=== PATIENT | female | born 1975 | race Caucasian/White ===

== ENCOUNTER 2019-03-23 10:51 | Emergency (ER) | payer OTHER ==
[2019-03-23 11:35] VITALS: BP 156/85
[2019-03-23] MEDS ORDERED: Ketorolac INJ* 60 MG/2 ML VIAL IM ONE (11:44)
--- NOTE | 2019-03-23 11:48 | UC ---
Dental HPI - HPI Summary HPI Summary: This patient is a 44-year-old female who presents to the urgent care with a chief complaint of having dental pain. She reports that this morning she was seen at [facility] and she was given antibiotics and naproxen for the pain. However the pain is very severe at this time therefore she came to the urgent care. She reports that shes taken Suboxone therefore she is unable to take any narcotics. She doesnt have any swelling, thus doesnt have any trismus, she doesnt have any swelling of the tongue or lips. She has no other complaints. - History of Current Complaint Chief Complaint: UCDentalProblem Stated Complaint: DENTAL PAIN Time Seen by Provider: 03/23/19 11:40 Hx Obtained From: Patient Hx Last Menstrual Period: 2 weeks ago Severity: Severe Pain Intensity: 10 - Allergies/Home Medications Allergies/Adverse Reactions: Allergies Allergy/AdvReac Type Severity Reaction Status Date / Time No Known Allergies Allergy Verified 03/23/19 11:35 Home Medications: Home Medications Buprenorp/Nalox 8-2 MG SL TAB [Suboxone 8-2 mg SL TAB*] 1 tab.sl SL DAILY [History Confirmed 03/23/19] Bupropion XL* [Wellbutrin XL *] 150 mg PO DAILY 03/23/19 [History Confirmed ] PMH/Surg Hx/FS Hx/Imm Hx Previously Healthy: Yes Psychological History: Other - SUbstance abuse Other History Of: Negative For: Anticoagulant Therapy - Surgical History Surgical History: Yes Surgery Procedure, Year, and Place: LT ANKLE REPAIR,SCREWS REMOVED. BUNION REMOVED RT FOOT. LAP [facility]INI - Family History Known Family History: Positive: Cardiac Disease, Respiratory Disease - mother - Social History Alcohol Use: None Alcohol Amount: in recovery Substance Use Type: None Substance Use Comment - Amount & Last Used: hx of. on suboxone currently Smoking Status (MU): Current Every Day Smoker Type: Cigarettes Amount Used/How Often: 1/2 PPD-1 PPD X 20 YEARS Have You Smoked in the Last Year: Yes Household Exposure Type: Cigarettes - Immunization History Most Recent Influenza Vaccination: 07/2016 Most Recent Tetanus Shot: 06/2016 Most Recent Pneumonia Vaccination: never Review of Systems All Other Systems Reviewed And Are Negative: Yes Constitutional: Positive: Negative Skin: Positive: Negative Eyes: Positive: Negative ENT: Positive: Dental Pain Respiratory: Positive: Negative Cardiovascular: Positive: Negative Gastrointestinal: Positive: Negative Genitourinary: Positive: Negative Motor: Positive: Negative Neurovascular: Positive: Negative Musculoskeletal: Positive: Negative Neurological: Positive: Negative Psychological: Positive: Negative Is Patient Immunocompromised?: No Physical Exam - Summary Physical Exam Summary: Gen.: Patient is a well developed and nourished female with acute distress secondary to dental pain Head: Normacephalic and atraumatic Eyes: PERRLA, EOMI x2. Ears: Right ear canal and TM WNL and Left ear canal and TM WNL Nose and mouth: Multiple dental pieces missing specially in the right upper jaw. Neck: Supple, Positive bilateral submandibular and anterior cervical lymphadenopathy. No JVD Lungs: CTA B/L CVS: S1 & S2 present. No murmurs appreciated. ABDOMEN: Soft NT w/ positive BS. EXT: FROM x 4 NEURO: A+O X 3. Vital Signs: Initial Vital Signs Temp 99.8 F 03/23/19 11:30 Pulse 61 03/23/19 11:30 Resp 18 03/23/19 11:30 BP 156/85 03/23/19 11:30 Pulse Ox 99 03/23/19 11:30 Dental Complaint Course/Dx - Course Course Of Treatment: In the urgent care course the patient was given Toradol 60 mg IM. She was recommended to get her prescription for antibiotics and naproxen for the pain. The patient understands and agrees. She was recommended to return to the urgent care or to the emergency room if the symptoms worsen. She understands and agrees. Patient is hemodynamically stable alert and oriented 3. - Differential Dx/Diagnosis Provider Diagnosis: Pain, dental Discharge - Sign-Out/Discharge Documenting (check all that apply): Patient Departure All imaging exams completed and their final reports reviewed: No Studies - Discharge Plan Condition: Stable Disposition: HOME Patient Education Materials: Toothache (ED) Referrals: Guille Mendoza MD [Primary Care Provider] - Additional Instructions: Patient was recommended to continue taking her antibiotics and naproxen. Patient shell follow-up with her dentist. If the symptoms worsen she should go to the emergency room for further workup and management. - Billing Disposition and Condition Condition: STABLE Disposition: Home
== END 2019-03-23 12:27 | disposition home or self-care (01) ==
LOC: UCEAST 10:51
DX: K08.89 Other specified disorders of teeth and supporting structures (principal); F17.210 Nicotine dependence, cigarettes, uncomplicated
CPT/HCPCS: 96372; 99211; G0463; J1885

== ENCOUNTER 2019-04-26 09:24 | Emergency (ER) | payer OTHER ==
[2019-04-26 09:30] VITALS: BP 135/83
== END 2019-04-26 11:43 | disposition left against medical advice (07) ==
LOC: ED 09:24
DX: K08.89 Other specified disorders of teeth and supporting structures (principal); Z53.21 Procedure and treatment not carried out due to patient leaving prior to being seen by health care provider

== ENCOUNTER 2019-04-26 21:31 | Emergency (ER) | payer OTHER ==
[2019-04-26] MEDS ORDERED: Ketorolac INJ* 30 MG/ML 1 ML VIAL IV PUSH ONE ×2 (22:31→23:41)
[2019-04-26] MEDS ORDERED: Morphine 4 MG/ML VIAL (1 ml) 4 MG/ML VIAL IV ONE (22:31)
[2019-04-26] MEDS ORDERED: Clindamycin 600 MG/D5W BAG(*) 600 MG/50 ML BAG IV ONE (22:32)
[2019-04-26 22:58] LABS: ABS Basophils 0.1 10^3/ul (0-0.2); ABS Eosinophils 0.7 10^3/ul (0-0.6); ABS Lymphocytes 3.2 10^3/ul (1.0-4.8); ABS Monocytes 0.6 10^3/ul (0-0.8); ABS Neutrophils 5.5 10^3/ul (1.5-7.7); Eosinophil % 6.7 %; Hematocrit 35 % (35-47); Hemoglobin 12.1 g/dL (12.0-16.0); Lymphocyte % 31.8 %; Mean Corpuscular HGB Conc 35 g/dL (31-36); Mean Corpuscular Hemoglobin 30 pg (27-31); Mean Corpuscular Volume 86 fL (80-97); Mean Platelet Volume 8.1 fL (7.4-10.4); Platelet Count 247 10^3/uL (150-450); Red Blood Count 4.01 10^6 /uL (3.70-4.87); Red Cell Distribution Width 13 % (10-15)
[2019-04-26 23:13] LABS: Albumin 3.9 g/dL (3.2-5.2); Albumin/Globulin Ratio 1.4 (1-3); BUN/Creatinine Ratio 20.3 (8-20); Calcium 8.7 mg/dL (8.6-10.3); EGFR Non-African American 110.7 (>60); Globulin 2.7 g/dL (2-4); Total Bilirubin 0.2 mg/dL (0.2-1.0); Total Protein 6.6 g/dL (6.4-8.9)
[2019-04-26] MEDS ORDERED: Iohexol 300* (CONTRAST) 10 ML SDV IV ONE (23:22)
--- NOTE | 2019-04-26 23:27 | ED ---
Throat Pain/Nasal Congestion - HPI Summary HPI Summary: 44 year old female presents with dental pain today. States she had dental infection for past couple weeks and has been on amoxicillin that completed 3 days ago. She states saw dentist today and will remove tooth next week. States she's been increased swelling to right side of face. She started clindamycin today. She has swelling below her right eye. She denies any pain with eye movement. She doesn't admit to pressure behind the eye. She states pain radiates into her ear and down her jaw. Denies any chest pain or shortness of breath. She has no medical conditions. - History of Current Complaint Chief Complaint: EDDentalPain Time Seen by Provider: 04/26/19 22:13 - Allergies/Home Medications Allergies/Adverse Reactions: Allergies Allergy/AdvReac Type Severity Reaction Status Date / Time No Known Allergies Allergy Verified 04/26/19 09:30 PMH/Surg Hx/FS Hx/Imm Hx Endocrine/Hematology History: Denies: Hx Anticoagulant Therapy, Hx Diabetes, Hx Sickle Cell Disease, Hx Thyroid Disease Cardiovascular History: Denies: Hx Hypertension, Hx Pacemaker/ICD, Other Cardiovascular Problems/ Disorders Respiratory History: Denies: Hx Asthma, Hx Chronic Obstructive Pulmonary Disease (COPD), Other Respiratory Problems/Disorders GI History: Denies: Hx Ulcer, Other GI Disorders History: Denies: Other Problems/Disorders Musculoskeletal History: Denies: Other Musculoskeletal History Sensory History: Denies: Hx Contacts or Glasses, Hx Hearing Aid Opthamlomology History: Denies: Hx Contacts or Glasses Neurological History: Denies: Other Neuro Impairments/Disorders Psychiatric History: Reports: Hx Substance Abuse - Heroin, "prescription pills" Denies: Hx Eating Disorder, Hx Panic Disorder, Hx of Violent Episodes Against Others - Surgical History Surgery Procedure, Year, and Place: LT ANKLE REPAIR,SCREWS REMOVED. BUNION REMOVED RT FOOT. 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 on suboxone currently Smoking Status (MU): Current Every Day Smoker Type: Cigarettes Amount Used/How Often: 1/2 PPD-1 PPD X 20 YEARS Have You Smoked in the Last Year: Yes Review of Systems Negative: Fever Positive: Dental Pain Negative: Chest Pain Negative: Shortness Of Breath All Other Systems Reviewed And Are Negative: Yes Physical Exam Triage Information Reviewed: Yes Vital Signs On Initial Exam: Initial Vitals Temp Pulse Resp BP Pulse Ox 98.6 F 66 20 185/87 98 04/26/19 21:33 04/26/19 21:33 04/26/19 21:33 04/26/19 21:33 04/26/19 21:33 Vital Signs Reviewed: Yes Appearance: Positive: Well-Appearing Skin: Positive: Warm, Dry Head/Face: Positive: Normal Head/Face Inspection Eyes: Positive: Normal, EOMI, DOM, Conjunctiva Clear ENT: Positive: Pharynx normal, TMs normal Dental: Positive: Gross Decay/Caries @ - throughout, Other - swelling to right side of face, swelling under right eye Respiratory/Lung Sounds: Positive: Clear to Auscultation, Breath Sounds Present Cardiovascular: Positive: Normal, RRR Abdomen Description: Positive: Nontender, Soft Bowel Sounds: Positive: Present Musculoskeletal: Positive: Normal Neurological: Positive: Normal Psychiatric: Positive: Normal Diagnostics - Vital Signs Vital Signs Temp Pulse Resp BP Pulse Ox 04/26/19 22:57 20 04/26/19 21:33 98.6 F 66 20 185/87 98 - Laboratory Lab Results: Lab Results 04/26/19 04/26/19 04/26/19 Range/Units 22:43 22:43 22:43 WBC 10.0 (3.5-10.8) 10^3/uL RBC 4.01 (3.70-4.87) 10^6 /uL Hgb 12.1 (12.0-16.0) g/dL Hct 35 (35-47) % MCV 86 (80-97) fL MCH 30 (27-31) pg MCHC 35 (31-36) g/dL RDW 13 (10-15) % Plt Count 247 (150-450) 10^3/uL MPV 8.1 (7.4-10.4) fL Neut % (Auto) 54.7 % Lymph % (Auto) 31.8 % Delta % (Auto) 6.3 % Eos % (Auto) 6.7 % Baso % (Auto) 0.5 % Absolute Neuts (auto) 5.5 (1.5-7.7) 10^3/ul Absolute Lymphs (auto) 3.2 (1.0-4.8) 10^3/ul Absolute Monos (auto) 0.6 (0-0.8) 10^3/ul Absolute Eos (auto) 0.7 H (0-0.6) 10^3/ul Absolute Basos (auto) 0.1 (0-0.2) 10^3/ul Absolute Nucleated RBC 0.0 10^3/ul Nucleated RBC % 0.0 Sodium 138 (135-145) mmol/L Potassium 4.0 (3.5-5.0) mmol/L Chloride 108 (101-111) mmol/L Carbon Dioxide 25 (22-32) mmol/L Anion Gap 5 (2-11) mmol/L BUN 12 (6-24) mg/dL Creatinine 0.59 (0.51-0.95) mg/dL Est GFR ( Amer) 134.0 (>60) Est GFR (Non-Af Amer) 110.7 (>60) BUN/Creatinine Ratio 20.3 H (8-20) Glucose 132 H (70-100) mg/dL Lactic Acid 0.6 (0.5-2.0) mmol/L Calcium 8.7 (8.6-10.3) mg/dL Total Bilirubin 0.20 (0.2-1.0) mg/dL AST 13 (13-39) U/L ALT 11 (7-52) U/L Alkaline Phosphatase 63 (34-104) U/L Total Protein 6.6 (6.4-8.9) g/dL Albumin 3.9 (3.2-5.2) g/dL Globulin 2.7 (2-4) g/dL Albumin/Globulin Ratio 1.4 (1-3) Result Diagrams: 04/26/19 22:43 04/26/19 22:43 Lab Statement: Any lab studies that have been ordered have been reviewed, and results considered in the medical decision making process. - CT maxillary facial CT Interpretation Completed By: Radiologist Summary of CT Findings: IMPRESSION: Mild soft tissue swelling with subcutaneous infiltration in the right jaw which. may be due to cellulitis. Re-Evaluation - Re-Evaluation First Eval Re-Evaluation Time: 23:46 Change: Improved Comment: pain better but now has nausea Second Eval Re-Evaluation Time: 01:00 Comment: discussed results, patient was given morphine and is feeling better as states has not had suboxone dose in a couple days, told to hold suboxone until morphine wears off to start suboxone again EENT Course/Dx - Course Course Of Treatment: 44 year old female presents with dental pain today. States she had dental infection for past couple weeks and has been on amoxicillin that completed 3 days ago. She states saw dentist today and will remove tooth next week. States she's been increased swelling to right side of face. She started clindamycin today. She has swelling below her right eye. She denies any pain with eye movement. She doesn't admit to pressure behind the eye. She states pain radiates into her ear and down her jaw. Denies any chest pain or shortness of breath. She has no medical conditions. On exam has swelling and tenderness to right side of face. Swelling along the gumline of right upper teeth. Afebrile. White blood cell count normal. Lactic normal. gave dose of clindamycin. CT shows cellulitis. patient is on suboxone. will add on ibuprofen for pain. told to ice. told follow up with dentist. patient understand and agrees with plan. - Differential Diagnoses Differential Diagnoses: Dental Abscess, Dental Caries, Fractured Tooth - Diagnoses Provider Diagnoses: Dental infection, Facial cellulitis Discharge - Sign-Out/Discharge Documenting (check all that apply): Patient Departure Patient Received Moderate/Deep Sedation with Procedure: No - Discharge Plan Condition: Good Disposition: HOME Prescriptions: Ibuprofen TAB* [Motrin TAB* 800 MG] 800 mg PO Q6H #20 tab Patient Education Materials: Dental Abscess (ED) Referrals: Guille Mendoza MD [Primary Care Provider] - Additional Instructions: continue clindamycin as prescribed Use ibuprofen or tyenlol every 6 hours Avoid hard, crunchy food until seen by dentist Follow up with dentist as soon as possible Return to ED if develop any new or worsening symptoms - Billing Disposition and Condition Condition: GOOD Disposition: Home
[2019-04-26] MEDS ORDERED: Ondansetron INJ* 2 MG/ML VIAL IV ONE (23:41)
[2019-04-27] MEDS ORDERED: Clindamycin 600 MG IVPREMIX(* 600 MG/50 ML SDV IV ONE (00:45)
[2019-04-27 02:02] VITALS: BP 141/81
== END 2019-04-27 01:53 | disposition home or self-care (01) ==
LOC: ED 21:31
DX: K04.7 Periapical abscess without sinus (principal); L03.211 Cellulitis of face; F17.210 Nicotine dependence, cigarettes, uncomplicated
CPT/HCPCS: 36415; 70487; 80053; 83605; 85025; 87040; 96365; 96375; 96376; 99283; J1885; J2270; J2405; Q9967